=== PATIENT | male | born 1940 | race Caucasian/White ===

== ENCOUNTER 2021-10-17 08:40 | Day surgery (SDC) | payer MEDICARE, BC ==
[2021-10-17] VITALS (10 sets, daily range): BP systolic 129–158; BP diastolic 56–78; PULSE 44–50; TEMP 98.1
[~2021-10-17] VITALS: Ht 183 cm; Wt 87.0 kg
[~2021-10-17 08:40] MED LIST: ELIQUIS 5MG PO; GLUCOPHAGE500 MG/TAB PO; LASIX 40MG TABL40 MG PO; NORVASC 10MG10 MG PO; OMNICEF 300MG300 MG PO; TOPROL XL 25MG25 MG PO; XANAX 0.5MG0.5 MG PO; ZITHROMAX500 M2 PO; ZOCOR 20MG20 MG PO
[2021-10-17 09:30] LABS: HEMATOCRIT 36.8 % (42.0-52.0); HEMOGLOBIN 10.9 g/dl (13.5-18.0); MEAN CELL VOLUME 100 fl (80.0-100.0); MEAN CORPUSCULAR HEMOGLOBIN 30 pg (27-31); MEAN CORPUSCULAR HGB CONC 30 g/dl (33.0-37.0); PLATELET COUNT 143 K/mm3 (130-400); REDCELL DISTRIBUTION WIDTH-CV 18.6 % (11.5-14.5)
--- NOTE | 2021-10-17 09:30 | NUR ---
SEE MERGE FOR ALL MEDICATION ADMINISTRATION TIMES/DOSAGES FOR [facility]. ANESTHESIA TO ADMINISTER MEDS/SEDATION FOR [facility] PORTION OF PROCEDURE. SEE ANESTHESIA RECORD FOR MEDICATION AND ASSESSMENT DOCUMENTATION DURING [facility]. SEE MERGE FOR ALL INTRA/POST PROCEDURE SEDATION ASSESSMENTS. PRE PROCEDURE ASSESSMENT COMPLETED IN [facility].
[2021-10-17 09:40] LABS: INR 1.4 (0.8-3.0); PROTHROMBIN TIME 15.6 SECONDS (9.7-12.8)
[2021-10-17 09:42] LABS: PARTIAL THROMBOPLASTIN TIME 36.6 SECONDS (26.0-37.0)
[2021-10-17 09:50] LABS: CALCIUM 8.4 mg/dL (8.4-10.2); CREATININE, serum 0.74 mg/dL (0.72-1.25); POTASSIUM 4.1 mmol/L (3.5-4.5)
[2021-10-17] MEDS ORDERED: CORDARONE200 MG/TAB PO (10:02)
[2021-10-17] MEDS ORDERED: LANOXIN 0.120.125 MG PO (10:03)
[2021-10-17] MEDS ORDERED: MIRTAZAPINE7.5 MG PO (10:04)
[2021-10-17 10:11] LABS: THYROID STIMULATING HORMONE 4.811 uIU/mL (0.350-4.940)
--- NOTE | 2021-10-17 11:30 | NUR ---
pt to eu 15 via bed from label machine operator, with pt. pt talking to staff, call light in reach, hob elevated 45 degrees per pt request, no c/o SOB or pain. radial site with band on, takes water.
[2021-10-17] MEDS ORDERED: ZOCOR 40MG40 MG PO (11:34)
[2021-10-17] MEDS ORDERED: TOPROL XL 25MG25 MG PO (11:35)
--- NOTE | 2021-10-17 12:15 | NUR ---
pt sits up in bed, no c/o at this time, no changes
--- NOTE | 2021-10-17 13:30 | NUR ---
pt sits up and eats meal. 2cc of air released from band will go slowly with air removal. reviewed discharge inst. with patient. Patient has many questions on medications he takes and what was changed, reviewed each med individual with verbal and written inst., also office called concerning followup with pt and left message for them to call. Also reviewed activity and precautions on site with verbal understanding.
--- NOTE | 2021-10-17 14:01 | NUR ---
total of 5cc of air released, will con't to monitor for bleeding and swelling
--- NOTE | 2021-10-17 14:30 | NUR ---
band released from Right wrist, no oozing or swelling noted, bandaid oversite with coban for support. pt up to b/r to void, gait steady, does use cane at home. iv d'cd intact, pressure applied to site due to oozing. pt up and dressed, discharged via w/c with to car at 1445
== END 2021-10-17 14:44 | disposition home or self-care (01) ==
LOC: COL.CAR 08:40
PROVIDERS: Internal Medicine Cardiovascular Disease
DX: I25.10 Atherosclerotic heart disease of native coronary artery without angina pectoris (principal); I48.0 Paroxysmal atrial fibrillation; I42.9 Cardiomyopathy, unspecified; I11.0 Hypertensive heart disease with heart failure; I50.20 Unspecified systolic (congestive) heart failure; E78.5 Hyperlipidemia, unspecified; I45.89 Other specified conduction disorders; I26.99 Other pulmonary embolism without acute cor pulmonale; Z79.899 Other long term (current) drug therapy; Z79.01 Long term (current) use of anticoagulants
CPT/HCPCS: J1644; J2250; J2370; J2704; J3010; J7030; Q9967